=== PATIENT | male | born 1990 | race Caucasian/White ===

== ENCOUNTER 2021-08-03 10:59 | Outpatient (CLI) | payer BC, SELFPAY ==
--- NOTE | 2021-08-03 11:06 | XR_ITS ---
WS: [id number] LEFT FOOT: 3 VIEW(S) TECHNIQUE: AP, oblique and lateral. HISTORY: Plantar fasciitis. COMPARISON: None available. No acute fracture or dislocation. Normal tarsal/metatarsal alignment. Very minimal spurring at the plantar aponeurosis. Mild beaking of the distal talus. XR/XR foot LT min 3V* [id number] IMPRESSION: Very minimal spurring at the plantar aponeurosis.
== END 2021-08-03 11:00 | disposition home or self-care (01) ==
PROVIDERS: Visit Provider Family Medicine
DX: M72.2 Plantar fascial fibromatosis (principal)
CPT/HCPCS: 73630